=== PATIENT | male | born 1975 | race Caucasian/White ===

== ENCOUNTER 2020-02-15 10:11 | Emergency (ER) | payer MEDICARE, MEDICAID, SELFPAY ==
--- NOTE | ~2020-02-15 | XR_ITS ---
XR ankle RT min 3V 02/15/2020 10:37 Indication: Right ankle pain Procedure: 4 views right ankle Comparison: 02/25/2015 Findings: No acute fracture, subluxation or dislocation. There is a large amount of lateral soft tiss ue swelling. There is a healed/healing fracture proximal aspect of the fifth metatarsal, partially vi sualized. No foreign bodies. Impression: 1: No acute fracture. 2: Healed/healing fracture proximal aspect of the fifth metatarsal, partially visualized. Reviewed, dictated and finalized at location A. Impression: 1: No acute fracture. 2: Healed/healing fracture proximal aspect of the fifth metatarsal, partially visualized.
[2020-02-15 10:25] VITALS: BP 137/84; PULSE 78; RESP 20; TEMP 37; O2SAT 98
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
== END 2020-02-15 11:00 | disposition home or self-care (01) ==
PROVIDERS: Emergency Provider Nurse Practitioner Family; PCP Family Medicine
DX: S93.401A Sprain of unspecified ligament of right ankle, initial encounter (principal); S96.911A Strain of unspecified muscle and tendon at ankle and foot level, right foot, initial encounter; Z87.820 Personal history of traumatic brain injury; X50.9XXA Other and unspecified overexertion or strenuous movements or postures, initial encounter
CPT/HCPCS: 73610; 99203; G0463

== ENCOUNTER 2020-07-09 12:01 | Emergency (ER) | payer MEDICARE, MEDICAID, SELFPAY ==
--- NOTE | ~2020-07-09 | XR_ITS ---
EXAMINATION: XR knee LT min 4V EXAM DATE: 07/09/2020 12:26 INDICATION: Initial encounter following injury, with pain of the left knee. TECHNIQUE: Left knee frontal, crosstable lateral, orthogonal oblique projections for interpretation. There is no prior study for comparison. FINDINGS: No evidence osteochondral defect or joint body in the left knee joint. There is mild prim selena osteoarthritis. Trace joint fluid. There are no acute fractures or dislocations identified. The re is no subcutaneous gas. The soft tissue is unremarkable. There are no radiopaque foreign bodies . IMPRESSION: No acute osseous findings. Reviewed, dictated and finalized at location A. IMPRESSION: No acute osseous findings.
[2020-07-09 12:08] VITALS: BP 139/93; PULSE 73; RESP 18; TEMP 37.2; O2SAT 97
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
[2020-07-09] MEDS: KETOROLAC (*BKC) 60 MG/2 ML VIAL IM (13:03)
== END 2020-07-09 13:33 | disposition home or self-care (01) ==
PROVIDERS: Emergency Provider Nurse Practitioner Family; PCP Family Medicine
DX: S83.92XA Sprain of unspecified site of left knee, initial encounter (principal); X58.XXXA Exposure to other specified factors, initial encounter; I69.311 Memory deficit following cerebral infarction
CPT/HCPCS: 73564; 96372; 99213; G0463; J1885

== ENCOUNTER 2023-02-04 09:34 | Emergency (ER) | payer OTHER, SELFPAY ==
--- NOTE | ~2023-02-04 | XR_ITS ---
XR chest 2V DATE: 02/04/2023 10:43 INDICATION: Left chest pain for 2 weeks TECHNIQUE: 2 view COMPARISON: None FINDINGS: Normal heart size. No hilar or mediastinal enlargement. No pulmonary infiltrate or consolid ation, pleural effusion or pulmonary vascular congestion or pneumothorax is detected. Mild thoracic s coliosis and degenerative change IMPRESSION: No active cardiopulmonary disease Reviewed, dictated and finalized at location A.
[2023-02-04 09:42] VITALS: BP 141/97; PULSE 77; RESP 20; TEMP 35.7; O2SAT 99
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
== END 2023-02-04 11:00 | disposition home or self-care (01) ==
PROVIDERS: Emergency Provider Nurse Practitioner Family; PCP Family Medicine
DX: R07.89 Other chest pain (principal); Z87.891 Personal history of nicotine dependence; G62.9 Polyneuropathy, unspecified; Z86.73 Personal history of transient ischemic attack (TIA), and cerebral infarction without residual deficits
CPT/HCPCS: 71046; 99213; G0463

== ENCOUNTER 2024-02-27 08:19 | Emergency (ER) | payer OTHER, SELFPAY ==
[2024-02-27 08:24] VITALS: BP 144/102; PULSE 75; RESP 20; TEMP 36.9; O2SAT 98
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
== END 2024-02-27 08:46 | disposition home or self-care (01) ==
PROVIDERS: Emergency Provider Nurse Practitioner Family; PCP Internal Medicine
DX: M25.862 Other specified joint disorders, left knee (principal); Z87.891 Personal history of nicotine dependence; F12.90 Cannabis use, unspecified, uncomplicated; Z86.73 Personal history of transient ischemic attack (TIA), and cerebral infarction without residual deficits
CPT/HCPCS: 99211; G0463

== ENCOUNTER 2024-11-18 09:49 | Emergency (ER) | payer OTHER, SELFPAY ==
[2024-11-18 10:04] VITALS: BP 152/95; PULSE 71; RESP 18; TEMP 36.8; O2SAT 99
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
--- OUTSIDE RECORDS SUMMARY | 2024-11-18 10:36 | XMS_ITS | Referral Summary ---
Author Organization [facility] 155 [facility] lt Address [address] [place] [address] Care Team Providers Care Diamond Driller Helper Name Role Phone Ronal Ruvalcaba MD Primary Care Provider [phone] Allergies Active Allergy Reactions Criticality Noted Date Comments Fentanyl Other (See comments) Low 02/24/2018 makes pain worse Morphine Other (See comments) Low 02/24/2018 makes pain worse Pregabalin Swollen tongue High Trouble swallowing Medications No known medications Active Problems Problem Noted Date Diagnosed Date Annual physical exam 03/02/2019 Assessment & Plan (03/02/2019 9:47 AM CDT): 1. Eat a healthy diet: focus on lean meats and proteins, more fruits, vegetables and whole grains and low in sugars and fats. Limit red meat and avoid processed meat. 2. Maintain a healthy weight; avoid being overweight. Aim for a normal body mass index (BMI) of 18.5-24.9. Help learning to eat healthier, we can set up appointment with warehouse operator/top lift compressor. 3. Have an active lifestyle, strive for 30 minutes of moderate exercise 5 times a week and strength or resistance training at least twice a week. 4. Use broad-spectrum (UVA+UVB) sunscreen with SPF 30 or greater, is water resistant, limit time spent in the sun (10 am-4pm), wear hat, wear UV protective clothing, wear sunglasses. Never use a tanning bed. Skin that was irradiated may be more sensitive over your lifetime. 5. Do not smoke or chew tobacco; participate in a smoking cessation program. 6. Limit alcohol intake, 2 drinks per day for a man. Lip lesion 03/02/2019 Assessment & Plan (03/02/2019 9:47 AM CDT): Referral to derm for left lower lip lesion. Encounter for screening for lipoid disorders Assessment & Plan (03/02/2019 9:48 AM CDT): Lipid panel completed. Reviewed results w/Mr Do at time of appt. Reviewed diet/exercise recommendations. Refused influenza vaccine 03/01/2019 History of nephrolithiasis 03/01/2019 BMI 27.0-27.9,adult 03/01/2019 Assessment & Plan (03/02/2019 9:47 AM CDT): BMI is acceptable for this patient. Reviewed recommendations for daily intake & activity 20-30 minutes/day. Right foot drop 01/30/2018 History of traumatic brain injury 01/30/2018 Tobacco dependence 01/28/2018 Assessment & Plan (03/02/2019 9:46 AM CDT): Tobacco use is unchanged. Smoking cessation counseling was provided. Tobacco use will be reassessed at the next regular appointment. Precontemplative. Encouraged complete smoking cessation. Discussed different types of medications & lgtg-mcg-rsyagkp aides to help with cessation. 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 01/30/201808/07 Immunizations Name Administration Dates Next Due Influenza, Unspecified 01/31/2021(Deferr ed: Patient Refused),02/23/2020(Deferred: Patient Refused),10/12/2019(Deferred: Patient Refused),10/12/2019(Deferred: Patient Refused),03/01/2019(Deferred: Patient Refused),10/12/2018(Deferred: Patient Refused),06/01/2018(Deferred: Patient Refused),10/12/2017(Deferred: Patient Refused),10/13/2016(Deferred: Patient Refused) Tdap 06/13/2015 Social History Tobacco Use Types Packs/Day Years Used Date Smoking Tobacco: Former Cigarettes 0.5 36 0 10/12/1982 - 2018 Smokeless Tobacco: Current Tobacco Cessation:Ready to Q uit: No; Counseling Given: Yes Comments:1/2 pack Alcohol Use Standard Drinks/Week Comments No 0 (1 standard drink = 0.6 oz pur e alcohol) PHQ-2 Answer Date Recorded PHQ-2 Total Score (If total score is 3 or more points, staff should administer the PHQ-9) 0 01/31/2021 Sex and Gender Information Value Date Recorded Sex Assigned at Not on file Legal Sex 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 Gender Identity Not on file Sexual Orientation Not on file Last Filed Vital Signs Vital Sign Reading Time Taken Comments Blood Pressure 136/78 01/31/2021 11:08 AM CDT Pulse 88 01/31/2021 11:08 AM CDT Temperature 36.4 C (97.5 F) 01/31/2021 11:08 AM CDT Respiratory Rate 16 01/31/2021 11:08 AM CDT Oxygen Saturation 98% 01/31/2021 11:08 AM CDT Inhaled Oxygen Concentration - - Weight 95.7 kg (211 lb) 01/31/2021 11:08 AM CDT Height 185.4 cm (6' 1 ) 01/31/2021 11:08 AM CDT Body Mass Index 27.84 01/31/2021 11:08 AM CDT Plan of Treatment Not on file Insurance [employer] HU[employer] CHOICE MEDICARE PPO Care Teams Diamond Driller Helper Relationship Specialty Start Date End Date Ronal Ruvalcaba MD [address] [place] [address] PCP - General Family Medicine 02/04/23
--- OUTSIDE RECORDS SUMMARY | 2024-11-18 10:36 | XMS_ITS | Clinical Summary ---
Author Organization [facility] 155 [facility] lt Address [address] [place] [address] Care Team Providers Care Director Of Integrated Marketing Name Role Phone Ronal Ruvalcaba MD Primary Care Provider [phone] Allergies Active Allergy Reactions Criticality Noted Date [...] healthier, we can set up appointment with die assembler/environmental engineering technician. 3. Have an active lifestyle, strive for [...] cessation. Discussed different types of medications & pzyl-fix-xfnivqn aides to help with cessation. 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
--- OUTSIDE RECORDS SUMMARY | 2024-11-18 10:36 | XMS_ITS | Clinical Summary ---
Author Organization [facility] Address [address] [place] [address] Phone Care Team Providers Care Audio Video Repairer Name Role Phone Sandeep Hoskins MD Primary Care Provider [phone] Duglas Slade PAC Unavailable [phone] Pratik Adams MD Unavailable Allergies Active Allergy Reactions Criticality Noted Date Comments Pregabalin Swelling High 09/14/2023 Trouble swallowing Medications diphenhydrAMIN E (BENADRYL) 25 MG Capsule Take by mouth 3 times daily as needed. Active Acetaminophen (TYLENOL PO) Take 500 mg by mouth 2 times daily. Active ibuprofen (MOTRIN) 600 MG Tablet TAKE 1 TABLET BY MOUTH EVERY 8 HOURS NEEDED FOR MODERATE OR MORE SEVERE PAIN 30 Tablet 6 4 Active methocarbamol (ROBAXIN) 750 MG TabletIndicati ons:Right thigh pain TAKE 1 TABLET BY MOUTH 4 TIMES DAILY NEEDED (MUSCLE SPASM). 30 Tablet 1 5 Active methocarbamol (ROBAXIN) 750 MG TabletIndicati ons:Right thigh pain TAKE 1 TABLET BY MOUTH 4 TIMES DAILY NEEDED (MUSCLE SPASM). 30 Tablet 1 5 025 Discontinued Active Problems Problem Noted Date Diagnosed Date Major depressive disorder, recurrent episode, mo derate 06/16/2024 Stroke 09/14/2023 Encounters Date Type Department Care Team Description 11/14/2024 Refill [facility] [place] [place] [address] Sandeep Hoskins MD Medication Refill 11/02/2024 Telephone [facility] [address] [place] [phone] Sandeep Hoskins MD Need Order 10/19/2024 [facility] [place] [address] Sandeep Hoskins MD Medication Refill 10/03/2024 [facility] [address] [place] [address] Sandeep Hoskins MD Referral 09/28/2024 11:00 AM TOOL TENDER [facility] [place] [address] Sandeep Hoskins MD Right thigh pain (Primary Dx); Major depressive disorder, recurrent episode, moderate (HCC); Pure hypercholesterolemia; Chronic pain of right ankle Discharge Disposition: Discharged to home or Selfcare 09/28/2024 [facility]ill [facility] [place] [address] Sandeep Hoskins MD Medication Refill 09/28/2024 Travel 08/29/2024 [facility] [place] [address] Palmer Wright APRN, SHIPPING RECEIVING MANAGER Medication Refill from Last 3 Months Immunizations Immunization Administration Dates Next Due Covid-19, Mrna, Lnp-s, Pf, 1 00 Mcg Or 50 Mcg Dose (MODERNA) 11/07/2021,03/04/2021,02/04/2021 Influenza,Split Virus,Trivalent,Injectable,PF 09/28/2024 TDAP Vaccine 06/13/2015 Family History Medical History Relation Name Comments Heart Attack Father No Known Problems Half-Brother Kidney Stones Half-Sister 1 [place] No Known Problems Half-Sister 2 No Known Problems Half-Sister 3 No Known Problems Half-Sister 4 No Known Problems Half-Sister 5 No Known Problems Half-Sister 6 No Known Problems Maternal Grandfather No Known Problems Maternal Grandmother Cancer Mother Heart Disease Mother Hypertension Mother Ovarian Cancer Mother No Known Problems Paternal Grandfather No Known Problems Paternal Grandmother Relation Name Status Comments Daughter 1 Alive Daughter 2 Alive Father Half-Brother Alive Half-Sister 1 [place] Alive Half-Sister 2 Alive Half-Sister 3 Alive Half-Sister 4 Alive Half-Sister 5 Alive Half-Sister 6 Alive Maternal Grandfather Maternal Grandmother Mother Paternal Grandfather Paternal Grandmother Son Unknown Social History Tobacco Use Types Packs/Day Years Used Date Smoking Tobacco: Former Cigarettes 1 37 S tarted: 1980 Passive Smoke Exposure: Past Smokeless Tobacco: Former Chew Tobacco Cessation:Counseling Given: Not Answered Alcohol Use Standard Drinks/Week Comments Not Currently 0 (1 standard drink = 0.6 oz pur e alcohol) [facility] Clicknationities Answer Date Recorded In the past 12 months has e electric, gas, oil, or water company threatened to shut off services in your home? No 02/05/2024 Social Connection and Isolation Panel [NHANES] A nswer Date Recorded In a typical week, how many times do you talk on the phone with family, friends, or neighbors? Once a week 02/05/2024 How often do you get togethe r with friends or relatives? Never 02/05/2024 How often do you attend protestant or caodaism serv ices? Never 02/05/2024 Do you belong to any clubs o r organizations such as protestant groups, unions, fraternal or athletic groups, or school groups? No 02/05/2024 How often do you attend meet ings of the clubs or organizations you belong to? Patient declined 02/05/2024 Are you , , di vorced, , never , or living with a partner? 02/05/2024 AUDIT-C Answer Date Recorded Q1: How often do you have a drink containing alcohol? Monthly or less 02/05/2024 Q2: How many drinks containi ng alcohol do you have on a typical day when you are drinking? Patient does not drink Q3: How often do you have si x or more drinks on one occasion? Never 02/05/2024 Overall Financial Resource Strain (CARDIA) Answe r Date Recorded How hard is it for you to pa y for the very basics like food, housing, medical care, and heating? Hard 02/05/2024 PHQ-2 Answer Date Recorded Total Score - Questions 1-9 21 01/2023 [facility] - Occupational Stress Questionnaire Answer Date Recorded Do you feel stress - tense, restless, nervous, or anxious, or unable to sleep at night because your mind is troubled all the time - these days? To some extent 02/05/2024 Exercise Vital Sign Answer Date Recorde d On average, how many days pe r week do you engage in moderate to strenuous exercise (like a brisk walk)? 7 days 02/05/2024 On average, how many minutes do you engage in exercise at this level? 30 min 02/05/2024 Hunger Vital Sign Answer Date Recorded Within the past 12 months, y ou worried that your food would run out before you got the money to buy more. Sometimes true Within the past 12 months, t he food you bought just didn't last and you didn't have money to get more. Often true PRAPARE - Transportation Answer Date Re corded In the past 12 months, has l ack of transportation kept you from medical appointments or from getting medications? Yes 01/11 In the past 12 months, has l ack of transportation kept you from meetings, work, or from getting things needed for daily living? Yes 02/05/2024 Housing Stability Vital Sign Answer Moses e Recorded In the last 12 months, was t here a time when you were not able to pay the mortgage or rent on time? Yes 02/05/2024 In the last 12 months, how many places have you lived? 1 02/05/2024 In the last 12 months, was t here a time when you did not have a steady place to sleep or slept in a intermediate (including now)? No 02/05/2024 Sexually Active Control Partners Comments Not Currently Female Sex and Gender Information Value Date Recorded Sex Assigned at Not on file Legal Sex Male 10:16 PM CDT Gender Identity Not on file Sexual Orientation Not on file Last Filed Vital Signs Vital Sign Reading Time Taken Comments Blood Pressure 133/71 09/28/2024 10:34 AM TOOL TENDER Pulse 85 09/28/2024 10:18 AM TOOL TENDER Temperature 36 C (96.8 F) 09/28/2024 10:18 AM TOOL TENDER Respiratory Rate 16 09/28/2024 10:18 AM TOOL TENDER Oxygen Saturation 97% 09/28/2024 10:18 AM TOOL TENDER Inhaled Oxygen Concentration - - Weight 93.6 kg (206 lb 6.4 oz) 09/28/2024 10:18 AM TOOL TENDER Height 182.9 cm (6') 09/28/2024 10:18 AM TOOL TENDER Body Mass Index 27.99 09/28/2024 10:18 AM TOOL TENDER Plan of Treatment Upcoming Encounters Date Type Department Care Team (Late st Contact Info) Description 03/29/2025 11:00 AM CDT [facility] Visit [facility] #2 [place] [address] Sandeep Hoskins MD [address] [address] Health Maintenance Due Date Last Done Comments Hepatitis C Virus (HCV) Screening 1975 Hepatitis B Immunization (1 of 3 - 19+ 3-dose series) 02/13/1995 SARS-COV-2 Immunization ( season) 2024 11/07/2021, 03/04/2021, 02/04/2021 Td Immunization Every 10 Years (Adults With 1 Tdap) 06/13/2025 06/13/2015 Colonoscopy 07/22/2034 07/22/2024, 07/22/2024 Colorectal Cancer Screening 07/22/2034 Respiratory Syncytial Virus (RSV) Immunization (Adult) (1 - 1-dose 75+ series) 02/13/2051 07/22/2024 DTaP/Tdap/Td Immunization Discontinued 06/13/2015 Influenza Immunization Completed 09/28/2024 Meningococcal Immunization (ACWY) Aged Out No longer eligible based on patient's age to complete this topic Pneumococcal Immunization Combined Aged Out No longer eligible based on patient's age to complete this topic Rotavirus Immunization Aged Out No lo nger eligible based on patient's age to complete this topic Insurance MEDICARE C HUMANA Care Teams Audio Video Repairer Relationship Specialty Start Date End Date Sandeep Hoskins MD #2 [facility] [address] [place] [address] PCP - General Family Medicine 09/14/23 Duglas Slade PAC #1 [place] [address] Physician Packaging Clerk Physician Packaging Clerk 03/18/24 Pratik Adams MD #2 [facility] [address] [place] [address] Consulting Physician Colon and Rectal Surgery 06/09/24
--- OUTSIDE RECORDS SUMMARY | 2024-11-18 10:36 | XMS_ITS | Encounter Summary ---
Author Organization [facility] Address [address] [place] [address] Phone Care Team Providers Care Spray Ii Painter Name Role Phone Sandeep Hoskins MD Primary Care Provider Duglas Slade PAC Unavailable [phone] Pratik Adams MD Unavailable Reason for Visit * Reason Comments Medication Refill Encounter Details Date Type Department Care Team (Late st Contact Info) Description 03/26/2024 Refill [facility] [place] #2 [place] [address] Carmencita Chilel, PAC [address] [place] [address] Medication Refill Social History Tobacco Use Types Packs/Day Years Used Date Smoking Tobacco: Former Cigarettes Passive Smoke Exposure: Past Smokeless Tobacco: Never Alcohol Use Standard Drinks/Week Comments Not Currently 0 (1 standard drink = 0.6 oz pur e alcohol) [facility] Utilities Answer Date Recorded In the past 12 months has Lob electric, gas, oil, or water company threatened [...] Never 02/05/2024 How often do you attend hindu or sikhism serv ices? Never 02/05/2024 Do you belong to any clubs o r organizations such as hindu groups, unions, fraternal or athletic groups, or [...] Total Score - Questions 1-9 21 01/2023 [facility] - Occupational Stress [...] place to sleep or slept in a long-term (including now)? No 02/05/2024 Sexually Active Control Partners Comments Not Currently Sex and Gender Information Value Date Recorded Sex Assigned at Not on file Legal Sex Male 10:16 PM CDT Gender Identity Not on file Sexual Orientation Not on file documented as of this encounter Miscellaneous Notes * Telephone Encounter - Gris Woodall RN - 03/28/2024 8:35 AM CDT Medication failed the protocol, provider to review and approve the medication order if appropriate. Requested Prescriptions Pending Prescriptions Disp Refills methocarbamol (ROBAXIN) 750 MG Tablet [Pharmacy Med Name: METHOCARBAMOL 750 MG TABLET] 30 Tablet 1 Sig: TAKE 1 TABLET BY MOUTH 4 TIMES DAILY NEEDED (MUSCLE SPASM). Not Delegated - Muscle Relaxants Protocol Failed - 03/26/2024 10:15 AM Failed - This refill cannot be delegated Passed - Visit with relevant provider in past 12 months or upcoming 90 days Recent Visits Date Type Provider Dept 03/11/24 Office Visit Carmencita Chilel PAC [facility] 02/05/24 Office Visit Vicki Phillips DO [facility] 09/28/23 Office Visit Sandeep Hoskins MD [facility] 09/14/23 Office Visit Sandeep Hoskins MD [facility] Showing recent visits within past 365 days and meeting all other requirements Future Appointments Date Type Provider Dept 03/29/24 Appointment Sandeep Hoskins MD [facility] Showing future appointments within next 90 days and meeting all other requirements documented in this encounter Plan of Treatment Upcoming Encounters Date Type Department Care Team (Late st Contact Info) Description 03/29/2025 11:00 AM CDT Office Visit [facility] [address] [place] [address] Sandeep Hoskins MD #2 [facility] [address] [place] [address] documented as of this encounter Visit Diagnoses Not on filedocumented in this encounter Additional Health Concerns Assessment Noted Time PHQ-9 Depression Total Score: 21 023 3:23 PM MINE ADMINISTRATOR SUPERVISOR documented as of this encounter Care Teams Spray Ii Painter Relationship Specialty Start Date End Date Sandeep Hoskins MD [address] [address] PCP - General Family Medicine 09/14/23 Duglas Slade PAC #1 [place] [address] Physician Heater Mechanic Physician Heater Mechanic 03/18/24 Pratik Adams MD #[address] [address] Consulting Physician Colon and Rectal Surgery 06/09/24 documented as of this encounter
== END 2024-11-18 10:44 | disposition home or self-care (01) ==
PROVIDERS: Emergency Provider Nurse Practitioner Family; PCP Internal Medicine
DX: K08.89 Other specified disorders of teeth and supporting structures (principal); Z87.891 Personal history of nicotine dependence; G62.9 Polyneuropathy, unspecified; Z86.73 Personal history of transient ischemic attack (TIA), and cerebral infarction without residual deficits
CPT/HCPCS: 99213; G0463

== ENCOUNTER 2025-02-17 12:27 | Emergency (ER) | payer OTHER, SELFPAY ==
--- OUTSIDE RECORDS SUMMARY | 2025-02-17 12:30 | XMS_ITS | Referral Summary ---
Author Organization [facility] 155 [facility] lt Address [address] [place] [address] Care Team Providers Care Biofuels Manager Name Role Phone Ronal Ruvalcaba MD Primary Care Provider [phone] Allergies Active Allergy Reactions Criticality Noted Date [...] healthier, we can set up appointment with web content developer/recreational assistant. 3. Have an active lifestyle, strive for [...] cessation. Discussed different types of medications & tqff-ljf-raqmvhq aides to help with cessation. 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
--- OUTSIDE RECORDS SUMMARY | 2025-02-17 12:30 | XMS_ITS | Clinical Summary ---
Author Organization [facility] Address [address] [place] [address] Phone Care Team Providers Care Production Superintendent Name Role Phone Sandeep Hoskins MD Primary Care Provider [phone] Duglas Slade PAC Unavailable [phone] Pratik Adams MD Unavailable Allergies Active Allergy [...] Encounters Date Type Department Care Team Description 02/02/2025 Refill [facility] #2 [place] [address] Sandeep Hoskins MD Medication Refill 01/13/2025 Telephone [facility] #2 [place] [address] Sandeep Hoskins MD Form Completion 01/12/2025 Refill [facility] #2 [place] [address] Sandeep Hoskins MD Medication Refill 12/11/2024 Refill [facility] #2 [place] [id number] Sandeep Hoskins MD Medication Refill from Last 3 Months Immunizations Immunization Administration Dates Next Due Covid-19, Mrna, Lnp-s, Bival ent, Moderna, 50 Mcg or 25 mcg dose 01/06/2025 Covid-19, Mrna, Lnp-s, Pf, 1 00 Mcg [...] Tobacco: Former Cigarettes 1 37 S tarted: 1981 Passive Smoke Exposure: Past Smokeless Tobacco: Former Chew Tobacco Cessation:Counseling Given: Not Answered Alcohol Use Standard Drinks/Week Comments Not Currently 0 (1 standard drink = 0.6 oz pur e alcohol) [facility] Utilities Answer Date Recorded In the past 12 months has th e electric, gas, oil, or water company [...] Never 02/05/2024 How often do you attend tenriism or druze serv ices? Never 02/05/2024 Do you belong to any clubs o r organizations such as tenriism groups, unions, fraternal or athletic groups, or [...] Total Score - Questions 1-9 21 01/2023 [facility] [place] of Occupat ional Health - Occupational Stress [...] Comments Blood Pressure 133/71 09/28/2024 10:34 AM MIXED CROP AND LIVESTOCK FARM WORKER Pulse 85 09/28/2024 10:18 AM MIXED CROP AND LIVESTOCK FARM WORKER Temperature 36 C (96.8 F) 09/28/2024 10:18 AM MIXED CROP AND LIVESTOCK FARM WORKER Respiratory Rate 16 09/28/2024 10:18 AM MIXED CROP AND LIVESTOCK FARM WORKER Oxygen Saturation 97% 09/28/2024 10:18 AM MIXED CROP AND LIVESTOCK FARM WORKER Inhaled Oxygen Concentration - - Weight 93.6 kg (206 lb 6.4 oz) 09/28/2024 10:18 AM MIXED CROP AND LIVESTOCK FARM WORKER Height 182.9 cm (6') 09/28/2024 10:18 AM MIXED CROP AND LIVESTOCK FARM WORKER Body Mass Index 27.99 09/28/2024 10:18 AM MIXED CROP AND LIVESTOCK FARM WORKER Plan of Treatment Upcoming Encounters Date Type Department Care Team (Late st Contact Info) Description 03/29/2025 11:00 AM CDT Office Visit [facility] [address] [place] [address] Sandeep Hoskins MD [address] [address] Health Maintenance Due Date Last Done Comments Hepatitis C Virus (HCV) Screening 1975 Hepatitis B Immunization (1 of 3 - 19+ 3-dose series) 02/13/1995 Td Immunization Every 10 Years (Adults With 1 Tdap) 06/13/2025 06/13/2015 Colonoscopy 07/22/2034 07/22/2024, 07/22/2024 Colorectal Cancer Screening 07/22/2034 Respiratory Syncytial Virus (RSV) Immunization (Adult) (1 - 1-dose 75+ series) 02/13/2051 07/22/2024 DTaP/Tdap/Td Immunization Discontinued 06/13/2015 Influenza Immunization Completed 09/28/2024 SARS-COV-2 Immunization Completed 01/07/20, 01/06/2025, 11/07/2021, Additional history exists Meningococcal Immunization (ACWY) Aged Out No longer eligible based on patient's age to complete this topic Pneumococcal Immunization Combined Aged Out No longer eligible based on patient's age to complete this topic Rotavirus Immunization Aged Out No lo nger eligible based on patient's age to complete this topic Insurance MEDICARE C HUMANA Care Teams Production Superintendent Relationship Specialty Start Date End Date Sandeep Hoskins MD #[address] [address] PCP - General Family Medicine 09/14/23 Duglas Slade PAC #1 [place] [address] Physician Operation Specialist Physician Operation Specialist 03/18/24 Pratik Adams MD #[address] [address] Consulting Physician Colon and Rectal Surgery 06/09/24
--- OUTSIDE RECORDS SUMMARY | 2025-02-17 12:30 | XMS_ITS | Clinical Summary ---
Author Organization [facility] 155 [facility] lt Address [address] [place] [address] Care Team Providers Care Special Needs Nanny Name Role Phone Ronal Ruvalcaba MD Primary Care Provider [phone] Allergies Active Allergy Reactions Criticality Noted Date [...] healthier, we can set up appointment with ornament setter/maintenance worker. 3. Have an active lifestyle, strive for [...] cessation. Discussed different types of medications & jxrq-mmy-smyddqs aides to help with cessation. 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
--- OUTSIDE RECORDS SUMMARY | 2025-02-17 12:30 | XMS_ITS | Encounter Summary ---
Author Organization [facility] Address [address] [place] [address] Phone Care Team Providers Care Miter Cutter Name Role Phone Sandeep Hoskins MD Primary Care Provider Duglas Slade PAC Unavailable [phone] Pratik Adams MD Unavailable Reason for Visit * Reason Comments Medication Refill Encounter Details Date Type Department Care Team (Late st Contact Info) Description 03/26/2024 Refill [facility] [place] #2 [place] [address] Carmencita Chilel, PAC #2 [place] [address] Medication Refill Social History Tobacco Use Types Packs/Day Years Used Date Smoking Tobacco: Former Cigarettes Passive Smoke Exposure: Past Smokeless Tobacco: Never Alcohol Use Standard Drinks/Week Comments Not Currently 0 (1 standard drink = 0.6 oz pur e alcohol) [facility] Utilities Answer Date Recorded In the past 12 months has [employer] electric, gas, oil, or water company threatened [...] Never 02/05/2024 How often do you attend rastafari or shinto serv ices? Never 02/05/2024 Do you belong to any clubs o r organizations such as rastafari groups, unions, fraternal or athletic groups, or [...] Total Score - Questions 1-9 21 01/2023 [facility] of Occupat ional Health - Occupational Stress [...] Dept 03/11/24 Office Visit Carmencita Chilel PAC [facility] [place] 02/05/24 Office Visit Vicki Phillips DO [facility] 09/28/23 Office Visit Sandeep Hoskins MD [facility] 09/14/23 Office Visit Sandeep Hoskins MD [facility] [place] Showing recent visits within past 365 [...] Visit [facility] [address] [place] [address] Sandeep Hoskins MD #2 [facility] [address] [place] [address] documented as of this encounter Visit Diagnoses Not on filedocumented in this encounter Additional Health Concerns Assessment Noted Time PHQ-9 Depression Total Score: 21 023 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
[2025-02-17 12:35] VITALS: BP 147/93; PULSE 72; RESP 16; TEMP 36.6; O2SAT 99
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
== END 2025-02-17 13:02 | disposition home or self-care (01) ==
PROVIDERS: Emergency Provider Nurse Practitioner; PCP Internal Medicine
DX: L25.9 Unspecified contact dermatitis, unspecified cause (principal); Z87.891 Personal history of nicotine dependence; F12.90 Cannabis use, unspecified, uncomplicated; Z86.73 Personal history of transient ischemic attack (TIA), and cerebral infarction without residual deficits; G62.9 Polyneuropathy, unspecified
CPT/HCPCS: 99213; G0463

== ENCOUNTER 2025-05-14 09:00 | Emergency (ER) | payer OTHER, SELFPAY ==
--- OUTSIDE RECORDS SUMMARY | 2025-05-14 09:02 | XMS_ITS | Clinical Summary ---
Author Organization [facility] [address] [facility] Address [address] [place] [address] Care Team Providers Care Pitching Coach Name Role Phone Ronal Ruvalcaba MD Primary Care Provider [phone] Allergies Active Allergy Reactions Criticality Noted Date [...] healthier, we can set up appointment with sporting goods salesperson/pasteurizing machine operator. 3. Have an active lifestyle, strive for [...] cessation. Discussed different types of medications & jmto-hkv-fnkomsk aides to help with cessation. 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 01/30/201808/07 Encounters Date Type Department Care Team Description 05/03/2025 6:44 AM CDT - 05/03/2025 11:59 PM CDT Hospital Encounter [facility] Emergency, Room R Discharge Disposition: Discharge to home or self care from Last 3 Months Immunizations Immunization Administration Dates Next Due Influenza, [...] Date Comments Brain damage 02/1994 Stroke (cerebrum) 02/1994 Mini stroke 05/2016 TBI (traumatic brain injury) (HCC) 03/02/1994 Hypercholesteremia Kidney stone 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
--- OUTSIDE RECORDS SUMMARY | 2025-05-14 09:02 | XMS_ITS | Referral Summary ---
Author Organization [facility] 155 [facility] Address [address] [place] [address] Care Team Providers Care Product Marketing Analyst Name Role Phone Ronal Ruvalcaba MD Primary Care Provider [phone] Encounters Date Type Department Care Team Description 05/03/2025 6:44 AM CDT - 05/03/2025 11:59 PM CDT Hospital Encounter [facility] Emergency, Room R Discharge Disposition: Discharge to home or self care from Last 3 Months Allergies Active Allergy Reactions Criticality Noted Date [...] healthier, we can set up appointment with american sign language interpreter/rehabilitation worker. 3. Have an active lifestyle, strive [...] cessation. Discussed different types of medications & ddhe-vsj-qnmsgfa aides to help with cessation. 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
--- OUTSIDE RECORDS SUMMARY | 2025-05-14 09:02 | XMS_ITS | Encounter Summary ---
Author Organization [facility] Address [address] [place] [address] Phone Care Team Providers Care Avionics Systems Engineer Name Role Phone Sandeep Hoskins MD Primary Care Provider [phone] Duglas Slade PAC Unavailable [phone] Pratik Adams MD Unavailable Reason for Visit * Reason Comments Medication Refill Encounter Details Date Type Department Care Team (Late st Contact Info) Description 03/26/2024 Refill [facility] [place] #2 [place] [address] Carmencita Chilel, PAC [address] [place] [address] Medication Refill Social History Tobacco Use Types Packs/Day Years Used Date Smoking Tobacco: Former Cigarettes Passive Smoke Exposure: Past Smokeless Tobacco: Never Alcohol Use Standard Drinks/Week Comments Not Currently 0 (1 standard drink = 0.6 oz pur e alcohol) [facility] Utilities Answer Date Recorded In the past 12 months has [facility] electric, gas, oil, or water company threatened to shut off services in your home? No 02/05/2024 Social Connection and Isolation Panel Answer Date Recorded In a typical week, how many times do you talk on the phone with family, friends, or neighbors? Once a week 02/05/2024 How often do you get togethe r with friends or relatives? Never 02/05/2024 How often do you attend jewish or sikh serv ices? Never 02/05/2024 Do you belong to any clubs o r organizations such as jewish groups, unions, fraternal or athletic groups, or [...] Total Score - Questions 1-9 21 01/2023 [facility] of Occupat ional Health - Occupational [...] place to sleep or slept in a senior care (including now)? No 02/05/2024 Sexually Active Control [...] Dept 03/11/24 Office Visit Carmencita Chilel PAC [facility] 02/05/24 Office Visit Vicki Phillips DO [facility] 09/28/23 Office Visit Sandeep Hoskisn MD [facility] 09/14/23 Office Visit Sandeep Hoskins MD [facility] Showing recent visits within past 365 days and meeting all other requirements Future Appointments Date Type Provider Dept 03/29/24 Appointment Sandeep Hoskins MD [facility] Showing future appointments within next 90 days and meeting all other requirements documented in this encounter Plan of Treatment Upcoming Encounters Date Type Department Care Team (Late st Contact Info) Description 05/15/2025 10:00 AM CDT Office Visit [facility] #[address] [facility] [place] [address] Sandeep Hoskins MD [address] [facility] [address] [place] [address] 05/16/2025 2:15 PM CDT Office Visit [facility] #[address] [facility] [place] [address] Sandeep Hoskins MD [address] [address] documented as of this encounter Visit Diagnoses Not on filedocumented in this encounter Additional Health Concerns Assessment Noted Time PHQ-9 Depression Total Score: 21 023 3:23 PM PACKAGER HAND documented as of this encounter Care Teams Avionics Systems Engineer Relationship Specialty Start Date End Date Sandeep Hoskins MD [address] [address] PCP - General Family Medicine 09/14/23 Duglas Slade PAC [facility] [address] [place] [address] Physician Severity Of Illness Coordinator Physician Severity Of Illness Coordinator 03/18/24 Pratik Adams MD [address] [address] Consulting Physician Colon and Rectal Surgery 06/09/24 documented as of this encounter
--- OUTSIDE RECORDS SUMMARY | 2025-05-14 09:02 | XMS_ITS | Clinical Summary ---
Author Organization [facility] Address [address] [place] [address] Phone Care Team Providers Care Dealer Card Room Name Role Phone Sandeep Hoskins MD Primary Care Provider [phone] Duglas Slade PAC Unavailable [phone] Pratik Adams MD Unavailable Allergies Active Allergy [...] OR MORE SEVERE PAIN 30 Tablet 6 5 Active methocarbamol (ROBAXIN) 750 MG TabletIndicati [...] Encounters Date Type Department Care Team Description 05/10/2025 Telephone [facility] [address] [place] [address] Sandeep Hoskins MD Letter for School/Work 05/05/2025 Patient Outreach [facility] [address] [place] [address] Jose J Weir ED Follow-up 05/03/2025 7:03 AM CDT - 05/03/2025 2:37 PM CDT Emergency [facility] Emergency [address] [place] [address] Tayler Valenzuela MD Suicidal ideation Discharge Disposition: Short Term [facility] 05/03/2025 Travel 04/22/2025 [facility] [place] [address] Sandeep Hoskins MD Medication Refill 03/20/2025 [facility] [place] [address] Sandeep Hoskins MD Medication Refill 02/22/2025 [facility] [place] [address] Sandeep Hoskins MD Medication Refill from Last [...] drink = 0.6 oz pur e alcohol) [facility] Utilities Answer Date Recorded In the [...] Never 02/05/2024 How often do you attend latter-day or yazidi serv ices? Never 02/05/2024 Do you belong to any clubs o r organizations such as latter-day groups, unions, fraternal or athletic groups, or [...] Total Score - Questions 1-9 21 01/2023 [facility] - Occupational Stress Questionnaire Answer Date Recorded [...] place to sleep or slept in a m[facility]p (including now)? No 02/05/2024 Sexually Active Control Partners Comments Not Currently Female Sex and Gender Information Value Date Recorded Sex Assigned at Not on file Legal Sex Male 10:16 PM CDT Gender Identity Not on file Sexual Orientation Not on file Last Filed Vital Signs Vital Sign Reading Time Taken Comments Blood Pressure 142/89 05/03/2025 2:30 PM CDT Pulse 72 05/03/2025 2:30 PM CDT Temperature 36.3 C (97.4 F) 05/03/2025 7:16 AM CDT Respiratory Rate 16 05/03/2025 2:30 PM CDT Oxygen Saturation 100% 05/03/2025 2:30 PM CDT Inhaled Oxygen Concentration - - Weight 90.7 kg (200 lb) 05/03/2025 7:16 AM CDT Height 182.9 cm (6') 05/03/2025 7:16 AM CDT Body Mass Index 27.12 05/03/2025 7:16 AM CDT Plan of Treatment Upcoming Encounters Date Type Department Care Team (Late st Contact Info) Description 05/15/2025 10:00 AM CDT Office Visit [facility] [place] [address] Sandeep Hoskins MD #[address] [address] 05/16/2025 2:15 PM CDT Office Visit [facility] [place] [address] Sandeep Hoskins MD #[address] [place] [address] Health Maintenance Due Date Last Done Comments Hepatitis C Virus (HCV) Screening 1975 Hepatitis B Immunization (1 of 3 - 19+ 3-dose series) 02/13/1995 Cologuard 02/13/2021 Immunochemical Fecal Occult Blood 02/13/2021 SARS-COV-2 Immunization ( season) 2025 01/06/2025, 11/07/2021, 03/04/2021, Additional history exists Influenza Immunization (#1) 2025 09/28/2024 Td Immunization Every 10 Years (Adults With 1 Tdap) 06/13/2025 06/13/2015 Colonoscopy 07/22/2034 07/22/2024, 07/22/2024 Colorectal Cancer Screening 07/22/2034 Respiratory Syncytial Virus (RSV) Immunization (Adult) (1 - 1-dose 75+ series) 02/13/2051 DTaP/Tdap/Td Immunization Discontinued 06/13/2015 Human Papillomavirus (HPV) Immunization Aged Out No longer eligible based on patient's age to complete this topic Meningococcal Immunization (ACWY) Aged Out No longer eligible based on patient's age to complete this topic Pneumococcal Immunization Combined Aged Out No longer eligible based on patient's age to complete this topic Rotavirus Immunization Aged Out No lo nger eligible based on patient's age to complete this topic Procedures Procedure Name Priority Date/Time Associated Diagnosis Comments URINALYSIS REFLEX IF INDICATED BY ABNORMAL RESULTS STAT 05/03/2025 8:19 AM CDT URINE DRUG SCREEN STAT 05/03/2025 8:1 9 AM CDT CBC WITH AUTO DIFFERENTIAL STAT 05/03/2025 7:15 AM CDT SALICYLATE LEVEL STAT 05/03/2025 7:15 AM CDT ACETAMINOPHEN (TYLENOL) STAT 05/03/2025 7:15 AM CDT THYROID STIMULATING HORMONE (TSH) STAT 05/03/2025 7:15 AM CDT MAGNESIUM (MG) STAT 05/03/2025 7:15 AM CDT ETHYL ALCOHOL (ETHANOL) STAT 05/03/2025 7:15 AM CDT CMP (COMPREHENSIVE METABOLIC PANEL) STAT 05/03/2025 7:15 AM CDT COMPLETE BLOOD COUNT (CBC) WITH DIFF STAT 05/03/2025 7:15 AM CDT SARS-COV-2 BY MOLECULAR STAT 05/03/2025 7:15 AM CDT EKG 12 LEAD STAT 05/03/2025 7:02 AM CDT EKG SCAN 05/03/2025 12:00 AM CDT from Last 3 Months Results * (ABNORMAL) Urinalysis with Reflex if Indicated (05/03/2025 8:19 AM CDT) SPECIFIC GRAVITY 1.010 1.003 - 1.030 05/03/2025 9:29 AM CDT [facility] URINE PH 7.0 5.0 - 9.0 05/03/2025 9:29 AM CDT [facility] WBC ESTERASE Negative Negative 05/03/2025 9:29 AM CDT [facility] NITRITE Negative Negative 05/03/2025 9:29 AM CDT [facility] PROTEIN, RANDOM URINE 15 mg/dL(A) Negative 05/03/2025 9:29 AM CDT [facility] URINE GLUCOSE, QUAL Negative Negative 05/03/2025 9:29 AM CDT [facility] URINE KETONES 5 mg/dL(A) Negative 05/03/2025 9:29 AM CDT [facility] UROBILINOGEN Normal Normal mg/dL 05/03/2025 9:29 AM CDT [facility] URINE BLOOD 10 /uL(A) Negative milla/ul 05/03/2025 9:29 AM CDT [facility] URINALYSIS COLOR Yellow 05/03/20 9:29 AM CDT [facility] URINALYSIS CLARITY Clear 05/03/2025 9:29 AM CDT [facility] WBC (Urine) 0-5 Negative, 0-5 /hpf 05/03/2025 9:29 AM CDT [facility] URINE RBC'S 0-2 Negative, 0-2 /hpf 05/03/2025 9:29 AM CDT [facility] EPITHELIAL CELLS Occasional /lpf 05/03/20 9:29 AM CDT [facility] BACTERIA, URINE Negative Negative /hpf 05/03/2025 9:29 AM CDT [facility] Urine URINE SPECIMEN / Unknown Non-Phlebotomy Collection / Unknown 05/03/2025 8:19 AM CDT 05/03/2025 8:49 AM CDT us Tayler Valenzuela MD URINE ORDERABLES Final R esult [facility] [address] [place] [address] * (ABNORMAL) Urine Drug Screen (05/03/2025 8:19 AM CDT) UR AMPHETAMINE NON DETECTED NON DETECTED 05/03/2025 9:14 AM CDT [facility] Comment: FOR MEDICAL USE ONLY. CUTOFF CONCENTRATION FOR DETECTED RESULT: AMPHETAMINE: 500 NG/ML UR BENZODIAZEPINES NON DETECTED NON DETECTED 05/03/2025 9:14 AM CDT [facility] Comment: FOR MEDICAL USE ONLY. CUTOFF CONCENTRATION FOR DETECTED RESULT: BENZODIAZAPINE: 200 NG/ML UR COCAINE METABOLITE NON DETECTED NON DETECTED 05/03/2025 9:14 AM CDT [facility] Comment: FOR MEDICAL USE ONLY. CUTOFF CONCENTRATION FOR DETECTED RESULT: COCAINE: 150 NG/ML UR OPIATES NON DETECTED NON DETECTED 05/03/2025 9:14 AM CDT [facility] Comment: FOR MEDICAL USE ONLY. CUTOFF CONCENTRATION FOR DETECTED RESULT: OPIATES: 300 NG/ML UR PHENCYCLIDINE NON DETECTED NON DETECTED 05/03/2025 9:14 AM CDT [facility] Comment: FOR MEDICAL USE ONLY. CUTOFF CONCENTRATION FOR DETECTED RESULT: PCP: 25 NG/ML UR CANNABINOID DETECTED(A) NON DETECTED 05/03/2025 9:14 AM CDT [facility] Comment: FOR MEDICAL USE ONLY. CUTOFF CONCENTRATION FOR DETECTED RESULT: THC (MARIJUANA): 50 NG/ML UR BARBITURATE NON DETECTED NON DETECTED 05/03/2025 9:14 AM CDT [facility] Comment: FOR MEDICAL USE ONLY. CUTOFF CONCENTRATION FOR DETECTED RESULT: BARBITUATES: 200 NG/ML UR FENTANYL NON DETECTED NON DETECTED 05/03/2025 9:14 AM CDT [facility] Comment: FOR MEDICAL USE ONLY. CUTOFF CONCENTRATION FOR DETECTED RESULT: FENTANYL: 1.0 NG/ML Urine Non-Phlebotomy Collection / Unknown 05/03/2025 8:19 AM CDT 05/03/2025 8:49 AM CDT Tayler Valenzuela MD URINE ORDERABLES Final R esult Performing Organization Address City/[facility]/ZIP Co de Phone Number [facility] [address] [place] [address] * SARS-COV-2 BY MOLECULAR (05/03/2025 7:15 AM CDT) Pathologist [facility] SARSCOV2 NOT DETECTED (Referenc e Range for this test is Not Detected) 05/03/2025 8:35 AM CDT [facility] Comment:This test was perfor med by a Reverse Nutritionist Public Health PCR Method. Other NASOPHARYNGEAL STRUCTURE / Unknown Non-Phlebotomy Collection / Unknown 05/03/2025 7:15 AM CDT 05/03/2025 7:54 AM CDT Tayler Valenzuela MD MICROBIOLOGY - GENERAL O RDERABLES Final Result Performing Organization Address City/[facility]/ZIP Co de Phone Number [facility] [address] [place] [address] * (ABNORMAL) CBC with Auto Differential (05/03/2025 7:15 AM CDT) WBC 8.16 4.00 - 12.00 10(3)/mcL 05/03/2025 7:56 AM CDT [facility] RBC 4.49 4.40 - 5.80 10(6)/mcL 05/03/2025 7:56 AM CDT [facility] HEMOGLOBIN (HGB) 13.3 13.0 - 16.5 g/dL 05/03/2025 7:56 AM CDT [facility] HEMATOCRIT (HCT) 39.8 38.0 - 50.0 % 05/03/2025 7:56 AM CDT [facility] MCV 88.6 82.0 - 96.0 fL 05/03/2025 7:56 AM CDT [facility] MCH 29.6 26.0 - 32.0 pg 05/03/2025 7:56 AM CDT [facility] MCHC 33.4 31.0 - 36.0 g/dL 05/03/2025 7:56 AM CDT [facility] PLATELET COUNT 250 140 - 440 10(3)/mcL 05/03/2025 7:56 AM CDT [facility] RDW 12.4 11.8 - 15.5 % 05/03/2025 7:56 AM CDT [facility] MPV 10.5 8.0 - 12.6 fL 05/03/2025 7:56 AM CDT [facility] NEUTROPHILS 66.4 40.0 - 68.0 % 05/03/2025 7:56 AM CDT [facility] LYMPHOCYTES 20.7 19.0 - 49.0 % 05/03/2025 7:56 AM CDT [facility] MONOCYTES 6.7 3.0 - 13.0 % 05/03/2025 7:56 AM CDT [facility] EOSINOPHILS 4.7 0.0 - 8.0 % 05/03/2025 7:56 AM CDT [facility] BASOPHILS 1.0 0.0 - 1.0 % 05/03/2025 7:56 AM CDT [facility] IMMATURE GRANULOCYTE 0.5(H) 0.0 - 0.4 % 05/03/2025 7:56 AM CDT [facility] Comment:Immature Granulocyte s includes Metamyelocytes, Myelocytes, and Promyelocytes. ABSOLUTE NEUTROPHILS 5.42(H) 1.40 - 5.30 10(3)/mcL 05/03/2025 7:56 AM CDT [facility] ABSOLUTE LYMPHOCYTES 1.69 0.90 - 3.30 10(3)/mcL 05/03/2025 7:56 AM CDT [facility] ABSOLUTE MONOCYTES 0.55 0.10 - 0.90 10(3)/mcL 05/03/2025 7:56 AM CDT [facility] ABSOLUTE EOSINOPHIL 0.38 0.00 - 0.50 10(3)/mcL 05/03/2025 7:56 AM CDT [facility] ABSOLUTE BASOPHILS 0.08 0.00 - 0.10 10(3)/mcL 05/03/2025 7:56 AM CDT [facility] ABSOLUTE IMMATURE GRANULOCYTE 0.04(H) 0.00 - 0.03 10 (3) mcL. 05/03/2025 7:56 AM CDT [facility] NRBC PER 100 WBC 0 05/03/20 7:56 AM CDT [facility] Blood Venipuncture / Unknown 05/03/2025 7:15 AM CDT 05/03/2025 7:54 AM CDT Tayler Valenzuela MD HEMATOLOGY ORDERABLES Fi nal Result Performing Organization Address City/[facility]/ZIP Co de Phone Number [facility] [address] [place] [address] * (ABNORMAL) Acetaminophen Level (05/03/2025 7:15 AM CDT) Pathologist [facility] ACETAMINOPHEN <3(L) 10 - 30 mcg/mL 05/03/2025 9:53 AM CDT [facility] Blood Venipuncture / Unknown 05/03/2025 7:15 AM CDT 05/03/2025 7:54 AM CDT Tayler Valenzuela MD CHEMISTRY ORDERABLES Fin al Result Performing Organization Address City/[facility]/ZIP Co de Phone Number [facility] [address] [place] [address] * Thyroid Stimulating Hormone (TSH) (05/03/2025 7:15 AM CDT) TSH 0.898 0.300 - 5.000 mIU/L 05/03/2025 8:32 AM CDT [facility] Blood Venipuncture / Unknown 05/03/2025 7:15 AM CDT 05/03/2025 7:54 AM CDT Tayler Valenzuela MD CHEMISTRY ORDERABLES Fin al Result Performing Organization Address City/[facility]/ZIP Co de Phone Number [facility] [address] [place] [address] * (ABNORMAL) Salicylate Level (05/03/2025 7:15 AM CDT) SALICYLATE <5.0(L) 15.0 - 30.0 mg/dL 05/03/2025 9:51 AM CDT [facility] Blood Venipuncture / Unknown 05/03/2025 7:15 AM CDT 05/03/2025 7:54 AM CDT Tayler Valenzuela MD CHEMISTRY ORDERABLES Fin al Result Performing Organization Address City/[facility]/ZIP Co de Phone Number [facility] [address] [place] [address] * Magnesium (MG) (05/03/2025 7:15 AM CDT) MAGNESIUM 2.0 1.6 - 2.6 mg/dL 05/03/2025 8:14 AM CDT [facility] Blood Venipuncture / Unknown 05/03/2025 7:15 AM CDT 05/03/2025 7:54 AM CDT us Tayler Valenzuela MD CHEMISTRY ORDERABLES Fin al Result Performing Organization Address City/[facility]/ZIP Co de Phone Number [facility] [address] [place] [address] * ETOH Level (05/03/2025 7:15 AM CDT) ETHANOL <10 <10 mg/dL 05/03/2025 8:1 4 AM CDT [facility] Blood Venipuncture / Unknown 05/03/2025 7:15 AM CDT 05/03/2025 7:54 AM CDT Tayler Valenzuela MD CHEMISTRY ORDERABLES Fin al Result [facility] [address] [place] [address] * (ABNORMAL) CMP (Comprehensive Metabolic Panel) (05/03/2025 7:15 AM CDT) SODIUM 140 136 - 145 mmol/L 05/03/2025 8:14 AM CDT [facility] POTASSIUM 4.0 3.5 - 5.1 mmol/L 05/03/2025 8:14 AM CDT [facility] CHLORIDE 108(H) 98 - 107 mmol/L 05/03/2025 8:14 AM CDT [facility] CO2, VENOUS 24 22 - 30 mmol/L 05/03/2025 8:14 AM CDT [facility] ANION GAP 12.0 <18.0 mmol/L 05/03/2025 8:14 AM CDT [facility] GLUCOSE 102(H) 70 - 99 mg/dL 05/03/2025 8:14 AM CDT [facility] BUN 14 9 - 21 mg/dL 05/03/2025 8:14 AM CDT [facility] CREATININE, BLOOD 1.02 0.70 - 1.30 mg/dL 05/03/2025 8:14 AM CDT [facility] BUN/CREATININE RATIO 14 12 - 20 ratio 05/03/2025 8:14 AM CDT [facility] TOTAL PROTEIN 6.8 6.0 - 8.0 g/dL 05/03/2025 8:14 AM CDT [facility] ALBUMIN 4.4 3.5 - 5.0 g/dL 05/03/2025 8:14 AM CDT [facility] A/G RATIO 1.8 1.0 - 2.2 05/03/2025 8:14 AM CDT [facility] CALCIUM 9.1 8.7 - 10.5 mg/dL 05/03/2025 8:14 AM CDT [facility] T BILI 0.8 0.2 - 1.2 mg/dL 05/03/2025 8:14 AM CDT [facility] SGOT (AST) 34 <43 U/L 05/03/2025 8:14 AM CDT [facility] SGPT (ALT) 21 <56 U/L 05/03/2025 8:14 AM CDT [facility] ALKALINE PHOSPHATASE 68 40 - 150 U/L 05/03/2025 8:14 AM CDT [facility] GFR, ESTIMATED >60 >=60 05/03/2025 8:14 AM CDT [facility] Comment: Creatinine Clearance is the preferred criteria for selecting drug dose adjustments in renally impaired patients. The GFR is provided as additional pertinent clinical information. GFR is reported in mL/min/1.73 sq m. Calculation based on the Chronic Kidney Disease Epidemiology Collaboration (CKD- EPI) equation refit without adjustment for race. GFR, EST. >60 >=60 025 8:14 AM CDT [facility] GFR, EST. NONAFRICAN >60 >=60 05/03/2025 8:14 AM CDT [facility] Blood Venipuncture / Unknown 05/03/2025 7:15 AM CDT 05/03/2025 7:54 AM CDT us Tayler Valeznuela MD CHEMISTRY ORDERABLES Fin al Result [facility] [address] [place] [address] * EKG 12 LEAD (05/03/2025 7:02 AM CDT) Ventricular Rate 60 BPM EXTERNAL EKG Atrial Rate 60 BPM EXTERNAL EKG P-R Interval 142 ms EXTERNAL EKG QRS Duration 84 ms EXTERNAL EKG Q-T Duration 418 ms EXTERNAL EKG QTC CALCULATION 418 ms EXTERNAL EKG P [place] 9 degrees EXTERNAL EKG R [place] 31 degrees EXTERNAL EKG T [place] 52 degrees EXTERNAL EKG 05/03/2025 7:02 AM CDT Impressions EXTERNAL EKG - 05/05/2025 3:02 PM CDT Normal sinus rhythm Minimal voltage criteria for LVH, may be normal variant ( Sokolow-Patel ) Borderline ECG No previous ECGs available Confirmed by Verenice Caceres ([id number]) on 05/05/2025 3:02:47 PM Narrative Procedure Note Verenice Caceres MD PhD - 05/05/2025 IMPRESSION: Normal sinus rhythm Minimal voltage criteria for LVH, may be normal variant ( Sokolow-Patel ) Borderline ECG No previous ECGs available Confirmed by Verenice Caceres ([id number]) on 05/05/2025 3:02:47 PM us Tayler Valenzuela MD IMG ECG ORDERABLES Final Result EXTERNAL EKG * EKG SCAN (05/03/2025 12:00 AM CDT) 05/03/2025 us Provider Scan IMG ECG ORDERABLES Final Result RESULTING AGENCY from Last 3 Months Insurance MEDICARE C HUMANA Care Teams Dealer Card Room Relationship Specialty Start Date End Date Sandeep Hoskins MD #[address] [address] PCP - General Family Medicine 09/14/23 Duglas Slade PAC #[address] [address] Physician Meeting Planner Physician Meeting Planner 03/18/24 Pratik Adams MD #[address] [address] Consulting Physician Colon and Rectal Surgery 06/09/24
[2025-05-14 09:07] VITALS: BP 149/89; PULSE 61; RESP 16; TEMP 36.8; O2SAT 100
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
== END 2025-05-14 09:30 | disposition home or self-care (01) ==
PROVIDERS: Emergency Provider Nurse Practitioner; PCP Internal Medicine
DX: R21 Rash and other nonspecific skin eruption (principal); Z87.891 Personal history of nicotine dependence; F12.90 Cannabis use, unspecified, uncomplicated; G62.9 Polyneuropathy, unspecified; Z86.73 Personal history of transient ischemic attack (TIA), and cerebral infarction without residual deficits
CPT/HCPCS: 99213; G0463